=== PATIENT | male | born 1940 | race Caucasian/White ===

== ENCOUNTER 2016-12-12 11:39 | Emergency (ER) | payer OTHER ==
[~2016-12-12] VITALS: Ht 175.3 cm; Wt 75.0 kg
[~2016-12-12 11:39] MED LIST: ZOSTAVAX IM
[2016-12-12] MEDS ORDERED: ULTRAM50 M1 PO (18:03)
[2016-12-12 18:09] VITALS: BP 131/68
== END 2016-12-12 18:20 | disposition home or self-care (01) | DRG 605 ==
LOC: ED 11:39
PROC: 0HQ0XZZ Repair Scalp Skin, External Approach (ICD-10-PCS; principal; 2016-12-12)
PROC: 0HQEXZZ Repair Left Lower Arm Skin, External Approach (ICD-10-PCS; 2016-12-12)
DX: S01.01XA Laceration without foreign body of scalp, initial encounter (principal); S51.012A Laceration without foreign body of left elbow, initial encounter; S80.211A Abrasion, right knee, initial encounter; W11.XXXA Fall on and from ladder, initial encounter; Y93.H9 Activity, other involving exterior property and land maintenance, building and construction; Y92.008 Other place in unspecified non-institutional (private) residence as the place of occurrence of the external cause

== ENCOUNTER 2016-12-20 10:22 | Emergency (ER) | payer OTHER ==
[~2016-12-20] VITALS: Ht 175.3 cm; Wt 75.0 kg
[~2016-12-20 10:22] MED LIST changes: +ULTRAM50 M1 PO
[2016-12-20] MEDS ORDERED: KEFLEX500 MG PO (11:22)
[2016-12-20 12:17] VITALS: BP 121/53
== END 2016-12-20 12:17 | disposition home or self-care (01) | DRG 950 ==
LOC: ED 10:22
DX: S01.01XD Laceration without foreign body of scalp, subsequent encounter (principal); S51.012D Laceration without foreign body of left elbow, subsequent encounter